=== PATIENT | male | born 1960 | race American Indian/Alaskan Native ===

== ENCOUNTER 2018-01-03 04:08 | Emergency (ER) | payer MEDICAID, OTHER ==
[2018-01-03 04:09] VITALS: BMI 28.5
[2018-01-03 04:26] VITALS: RESP 18; O2SAT 100
[2018-01-03 04:29] VITALS: TEMP 98.6
--- NOTE | 2018-01-03 05:13 | ED PDOC ---
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 Patient denies any fever, chills, cough, shortness of breath, nausea, vomiting, diarrhea, back pain, neck pain, headache, dizziness, or any other complaints. Time/Duration: Other (this morning) Symptom Onset: Sudden Symptom Course: Unchanged Activities at Onset: Light Context: Home Past Medical History - Provider Review Nursing Documentation Reviewed: Yes - Infectious Disease Hx of Infectious Diseases: None - Tetanus Immunization Tetanus Immunization: Unknown - Cardiac Hx Congestive Heart Failure: Yes Hx Hypertension: Yes - Pulmonary Hx Asthma: Yes Hx Chronic Obstructive Pulmonary Disease (COPD): Yes - Neurological Hx Seizures: Yes - HEENT Hx HEENT Disorder: No - Renal Hx Renal Disorder: No - Endocrine/Metabolic Hx Endocrine Disorders: No - Hematological/Oncological Hx Anemia: Yes - Integumentary Hx Dermatological Disorder: No - Musculoskeletal/Rheumatological Hx Musculoskeletal Disorders: No Hx Falls: No - Gastrointestinal Hx Gastrointestinal Disorders: No - Genitourinary/Gynecological Hx Genitourinary Disorders: No - Psychiatric Hx Psychophysiologic Disorder: No Hx Depression: No Hx Substance Use: No - Surgical History Hx Cholecystectomy: Yes Hx Tonsillectomy: Yes - Anesthesia Hx Anesthesia: Yes Hx Anesthesia Reactions: No - Suicidal Assessment Feels Threatened In Home Enviroment: No Family/Social History - Physician Review Nursing Documentation Reviewed: Yes Family/Social History: No Known Family HX Smoking Status: Never Smoked Hx Alcohol Use: No Hx Substance Use: No Allergies/Home Meds Allergies/Adverse Reactions: Allergies iodine Allergy (Verified 01/02/18 22:02) RASH latex Allergy (Verified 01/02/18 22:02) SWELLING Penicillins Allergy (Verified 01/02/18 22:02) SWELLING nitroglycerin Adverse Reaction (Verified 01/02/18 22:02) DIZZINESS Home Medications: Home Meds Medication Instructions Recorded Confirmed Atorvastatin Calcium [Lipitor] 20 mg PO DAILY 06/02/15 01/02/18 Furosemide [Lasix] 20 mg PO DAILY 06/02/15 01/02/18 Lisinopril 20 mg PO DAILY 06/02/15 01/02/18 Montelukast [Singulair] 10 mg PO DAILY 06/02/15 01/02/18 Phenobarbital [PHENobarbital Tab] 32.4 mg PO TID 06/02/15 01/03/18 Warfarin [Coumadin] 10 mg PO DAILY 06/02/15 01/03/18 Furosemide [Lasix] 20 mg PO DAILY 01/02/18 01/02/18 Levetiracetam [Keppra] 500 mg PO BID 01/02/18 01/02/18 Phenytoin, Extended [Dilantin 200 mg PO BID 01/02/18 01/03/18 Kapseals] Review of Systems - Physician Review All systems were reviewed & negative as marked: Yes - Review of Systems Constitutional: absent: Fevers, Other (Chills) Respiratory: absent: SOB, Cough Cardiovascular: Chest Pain Gastrointestinal: absent: Diarrhea, Nausea, Vomiting Musculoskeletal: absent: Back Pain, Neck Pain Neurological: absent: Headache, Dizziness Physical Exam Vital Signs Reviewed: Yes Vital Signs Temp Pulse Resp BP Pulse Ox 01/03/18 06:52 60 18 130/82 100 01/03/18 04:28 98.6 F 01/03/18 04:22 63 18 132/74 100 Temperature: Afebrile Blood Pressure: Normal Pulse: Regular Respiratory Rate: Normal Appearance: Positive for: Well-Appearing, Non-Toxic, Comfortable Pain Distress: None Mental Status: Positive for: Alert and Oriented X 3 - Systems Exam Head: Present: Atraumatic, Normocephalic Pupils: Present: PERRL Extroacular Muscles: Present: EOMI Conjunctiva: Present: Normal Mouth: Present: Moist Mucous Membranes Neck: Present: Normal Range of Motion. No: Meningeal Signs Respiratory/Chest: Present: Clear to Auscultation, Good Air Exchange. No: Respiratory Distress, Accessory Muscle Use Cardiovascular: Present: Regular Rate and Rhythm, Normal S1, S2. No: Murmurs Abdomen: Present: Normal Bowel Sounds. No: Tenderness, Distention, Peritoneal Signs Back: Present: Normal Inspection Upper Extremity: Present: Normal Inspection. No: Cyanosis, Edema Lower Extremity: Present: Normal Inspection. No: Edema Neurological: Present: GCS=15, CN II-XII Intact, Speech Normal Skin: Present: Warm, Dry, Normal Color. No: Rashes Psychiatric: Present: Alert, Oriented x 3, Normal Insight, Normal Concentration Medical Decision Making ED Course and Treatment: 01/03/18 04:30 Impression: 57 year old male presents complaining of left sided chest discomfort that began this morning. Plan: -- EKG -- Labs -- Chest X-ray -- Reassess and disposition Progress Notes: EKG shows Sinus Bradycardia at 59 BPM with no acute changes. Interpreted by me. 01/03/18 06:20 CXR Impression: As read by me, no acute processes. - Lab Interpretations I have reviewed the lab results: Yes - RAD Interpretation Radiology Orders: 01/03/18 04:32 CHEST PORTABLE [RAD] Stat - EKG Interpretation Interpreted by ED Physician: Yes Type: 12 lead EKG - Transfer of Care Patient signed out to Dr:: Aristides Other: Pending labs/reassess/final disposition - Scribe Statement The provider has reviewed the documentation as recorded by the Scribe Antoni Estevez Provider Scribe Attestation: All medical record entries made by the Scribe were at my direction and personally dictated by me. I have reviewed the chart and agree that the record accurately reflects my personal performance of the history, physical exam, medical decision making, and the department course for this patient. I have also personally directed, reviewed, and agree with the discharge instructions and disposition. Disposition/Present on Arrival - Present on Arrival Any Indicators Present on Arrival: No History of DVT/PE: No History of Uncontrolled Diabetes: No Urinary Catheter: No History of Decub. Ulcer: No History Surgical Site Infection Following: None - Disposition Have Diagnosis and Disposition been Completed?: No Diagnosis: Chest pain Disposition Time: 07:00 Patient Problems: Current Active Problems Problem Status Onset Chest pain Acute Condition: STABLE Discharge Instructions (ExitCare): Chest Pain (ED) Forms: [facility] (Salvadorean)
[2018-01-03 06:53] VITALS: BP 130/82; PULSE 60
--- NOTE | 2018-01-03 07:20 | ED PDOC ---
Physical Exam Vital Signs Reviewed: Yes Vital Signs Temp Pulse Resp BP Pulse Ox 01/03/18 06:52 60 18 130/82 100 01/03/18 04:28 98.6 F 01/03/18 04:22 63 18 132/74 100 Blood Pressure: Normal Pulse: Regular Respiratory Rate: Normal Appearance: Positive for: Well-Appearing, Non-Toxic, Comfortable Pain Distress: None Mental Status: Positive for: Alert and Oriented X 3 Medical Decision Making ED Course and Treatment: 01/03/18 07:19 Case signed out to me by Dr. Levi. Patient with left sided chest discomfort, pending labs, reassessment and final disposition. 01/03/18 08:13 Patient requesting to leave against medical advice. 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 Risks of heart disease and heart attack explained, patient refuses to stay in the emergency department. Leaving Against Medical Advice (AMA): The patient is choosing to leave against medical advice. I have personally explained to the patient that choosing to do so may result in permanent bodily harm or . I have discussed at great length that without further evaluation and monitoring there may be unforeseen circumstances and/or deterioration causing permanent bodily harm or as a result of their choice. The patient is alert, oriented, and shows the mental capacity to make clear decisions regarding the patients health care at this time. The patient continues to wish to leave against medical advice. The patient has been advised that they should return to the emergency room immediately if they change their mind at any time, or if their condition begins to change or worsen in any way. - Lab Interpretations Lab Results: 01/03/18 06:30 Lab Results 01/03/18 06:30: WBC 3.9 L, RBC 3.36 L, Hgb 9.2 L, Hct 30.3 L, MCV 90.2, MCH 27.4 , MCHC 30.4 L, RDW 16.4 H, Plt Count 253, MPV 9.9 01/03/18 06:30: PT 29.6 H, INR 2.53 H, APTT 36.2 I have reviewed the lab results: Yes - RAD Interpretation Radiology Orders: 01/03/18 04:32 CHEST PORTABLE [RAD] Stat - Scribe Statement The provider has reviewed the documentation as recorded by the Lori Lau Provider Scribe Attestation: All medical record entries made by the Scribe were at my direction and personally dictated by me. I have reviewed the chart and agree that the record accurately reflects my personal performance of the history, physical exam, medical decision making, and the department course for this patient. I have also personally directed, reviewed, and agree with the discharge instructions and disposition. Disposition/Present on Arrival - Present on Arrival Any Indicators Present on Arrival: No History of DVT/PE: No History of Uncontrolled Diabetes: No Urinary Catheter: No History of Decub. Ulcer: No History Surgical Site Infection Following: None - Disposition Have Diagnosis and Disposition been Completed?: Yes Diagnosis: Chest pain Disposition: AGAINST MEDICAL ADVICE Disposition Time: 10:00 Condition: STABLE Discharge Instructions (ExitCare): Chest Pain (ED) Forms: [facility] (Swedish)
[2018-01-03 07:43] LABS: HEMOGLOBIN 9.2 g/dL (14.0-18.0); MEAN CELL VOLUME 90.2 fl (80.0-105.0); MEAN CORPUSCULAR HEMOGLOBIN 27.4 pg (25.0-35.0); MEAN CORPUSCULAR HGB CONC 30.4 g/dl (31.0-37.0); MEAN PLATELET VOLUME 9.9 fl (7.0-11.0); RBC 3.36 10^6/uL (3.5-6.1); RED CELL DISTRIBUTION WIDTH 16.4 % (11.5-14.5); WHITE BLOOD COUNT 3.9 10^3/ul (4.5-11.0)
[2018-01-03 08:01] LABS: INR 2.53 (0.93-1.08); PARTIAL THROMBOPLASTIN TIME 36.2 Seconds (25.1-36.5); PROTHROMBIN TIME 29.6 SECONDS (9.4-12.5)
[2018-01-03 08:16] LABS: TROPONIN I < 0.01 ng/mL
[2018-01-03 08:21] LABS: ALBUMIN 3.5 g/dL (3.0-4.8); ALT/SGPT 25 U/L (7-56); AST/SGOT 40 U/L (17-59); BLOOD UREA NITROGEN 12 mg/dL (7-21); CALCIUM 9.3 mg/dL (8.4-10.5); GFR AFRICAN-AMERICAN > 60; GFR NON-AFRICAN AMERICAN > 60
--- NOTE | 2018-01-03 08:43 | RAD ---
HISTORY: chest pain COMPARISON: 05/14/2015 FINDINGS: LUNGS: Linear scar/ atelectasis at both lung bases. No pulmonary infiltrate. PLEURA: No significant pleural effusion identified, no pneumothorax apparent. CARDIOVASCULAR: Normal. OSSEOUS STRUCTURES: No significant abnormalities. VISUALIZED UPPER ABDOMEN: Normal. OTHER FINDINGS: None. IMPRESSION: No active disease.
--- NOTE | 2018-01-03 10:28 | CARD ---
APPROVED REPORT EKG Measurement Heart [id number] <Conclusion> Sinus bradycardia Otherwise normal ECG No change
== END 2018-01-03 08:30 | disposition left against medical advice (07) ==
LOC: ED 04:08
DX: R07.9 Chest pain, unspecified (principal); I10 Essential (primary) hypertension; E11.9 Type 2 diabetes mellitus without complications; Z86.711 Personal history of pulmonary embolism; Z79.01 Long term (current) use of anticoagulants